=== PATIENT | female | born 1960 | race Caucasian/White ===

== ENCOUNTER 2021-06-15 17:07 | Observation (INO) ==
[2021-06-15] MEDS ORDERED: ACETAMINOPHEN 325 MG TABLET PO ONE ×2 (17:49→23:51)
[2021-06-15] MEDS ORDERED: LACTATED RINGERS 1,000 ML IV ONE (17:49)
--- NOTE | 2021-06-15 17:55 | Emergency Department Note ---
HPI General Chief complaint: Fever Stated complaint: fever Time Seen by Provider: 06/15/21 17:14 Source: patient Mode of arrival: ambulatory Limitations: no limitations History of Present Illness HPI Narrative: Narrative: 61-year-old female presents to the ED for evaluation of fever and concern for worsening infection around her wound VAC site of her left thigh. Sent here by PCP who was seen her earlier today for monitoring and management and noticed she had a fever and was developing some redness and warmth around the site. Patient was discharged from [facility] on June 08, she had a surgical debridement of a skin infection and perhaps abscess it sounds like, she had a wound VAC placed at that time. Patient was seen here in the ED on the and the nin she is already on outpatient antibiotics was on Keflex now on Doxy. She has had her wound VAC changed about once a week she says. For the past 48 hours she says she is started to develop low-grade fever increasing pain and redness around the edges of that left medial thigh wound and wound VAC. Otherwise she has no other acute complaints or other signs or symptoms of other infectious source. No URI symptoms no cardiorespiratory compl aints no abdominal pain no GI symptoms no symptoms. Related Data Home Medications Medication Instructions Recorded Confirmed levothyroxine 75 mcg tablet 75 mcg PO DAILY 02/27/16 06/15/21 lisinopril 20 1 tab PO DAILY 02/27/16 06/15/21 mg-hydrochlorothiazide 12.5 mg tablet Previous Rx's Medication Instructions Recorded oxaprozin 600 mg tablet (Daypro) 600 mg PO 1HRACBID #14 tab 02/27/16 doxycycline hyclate 100 mg capsule 100 mg PO BID #14 cap 06/10/21 Allergies Allergy/AdvReac Type Severity Reaction Status Date / Time No Known Drug Allergies Allergy Verified 06/15/21 17:09 Review of Systems ROS ROS Narrative: Narrative: All systems ED: reviewed and negative except as stated. [facility] Narrative Patient History Narrative: Narrative: Medical/Surgical/Family History All Active Problems (Updated 06/15/21 @ 21:55 by Florencio Conklin MD) Anemia (Acute) Sprain and strain of wrist (Acute) Cellulitis of left ankle (Acute) Left ankle swelling (Acute) Leg wound, left (Acute) Encounter for management of wound VAC (Acute) Wound infection (Acute) Medical History Sprain and strain of wrist Social History Smoking Status: Former smoker Exam Narrative Narrative: Narrative: Constitutional: normally developed, no acute distress . Borderline febrile 37.9 overall nonseptic nontoxic Head: Normocephalic, atraumatic, Eyes: No Icterus, ENT: Moist mucus membranes, Neck: Supple, Cardiac: Normal heart sounds, palpable radial pulses, no peripheral edema Pulmonary: Normal respiratory effort. Breath sounds clear, no wheeze, rhonchi, rales, Gastrointestinal: Abdomen soft, non-distended, non-tender, Musculoskeletal: No gross deformities, well perfused. Patient has a wound VAC to her left medial thigh wound, around the edges it is becoming slightly indurated tender and warm there is some mild erythema starting to develop but no obvious sign of drainable abscess. Skin: warm, dry Neuro: Alert and oriented. General Limitations: no limitations Course Vital Signs Vital signs: Vital Signs Temperature 37.9 C H 06/15/21 17:08 Pulse Rate 90 06/15/21 17:08 Respiratory Rate 18 06/15/21 17:08 Blood Pressure 109/70 06/15/21 17:08 Pulse Oximetry (%) 99 06/15/21 17:08 Temperature 36.4 C 06/16/21 00:00 Pulse Rate 75 06/16/21 00:00 Respiratory Rate 18 06/16/21 00:00 Blood Pressure 124/81 06/16/21 00:00 Pulse Oximetry (%) 95 06/16/21 00:00 [facility] MDM Narrative Medical decision making narrative: Narrative: Patient with a history of soft tissue wound surgically debrided at [place] over a month ago has had wound VAC since then following with PCP. Already on outpatient antibiotics but starting to develop some recurrent signs of infection around that site and low-grade fever her doctor sent her here for evaluation We will obtain labs, patient given IV fluids will change wound VAC. Did examine the wound after wound VAC was removed, does have some mild erythema and induration around the edge, overall the wound is well perfused but the central area does have some slight black granulation versus slight necrotic tissue may require some further debridement. Did consult with Dr. Park who is agreeable to seeing the patient on consult service, request hospitalist admission. CBC no leukocytosis, of note patient is acutely anemic hemoglobin 6.5 no previous labs for comparison, she has no known history of anemia or reports of any recent bleeding no prior transfusions. She denies any abdominal pain GI symptoms melena or blood per rectum. She did provide consent for blood transfusion we will give her 1 unit Lactic acid normal 1.0 electrolytes no significant abnormalities Did speak with the hospitalist who agrees to admit the patient and did also discuss in the setting of this anemia, Dr. Park is agreeable to performing endoscopy if it is determined if she may need that as part of her anemia work- up. Lab Data Result diagrams: 06/15/21 17:50 06/15/21 17:50 Labs: Lab Results 06/15/21 06/15/21 06/15/21 Range/Units 17:50 17:50 17:50 WBC 7.4 (4.5-11.0) K/mcL RBC 2.28 L (3.59-5.38) M/mcL Hgb 6.5 L* (11.2-15.7) g/dL Hct 20.7 L* (34.1-44.9) % MCV 90.8 (80.0-100.0) fL MCH 28.5 (26.0-34.0) pg MCHC 31.4 (31.0-36.0) g/dL RDW 14.7 H (11.5-14.5) % Plt Count 396 (140-440) K/mcL MPV 8.5 (7.4-10.4) fL Neut % (Auto) 0 L (38.0-78.0) % Lymph % (Auto) 0 L (15.5-49.0) % [place] % (Auto) 0 L (1.0-12.0) % Eos % (Auto) 0 (0.0-7.0) % Baso % (Auto) 0 (0.0-2.0) % Lymph # (Auto) 1.33 L (1.50-4.80) K/mcL [place] # (Auto) 1.07 H (0.10-0.90) K/mcL Eos # (Auto) 0.04 (0.00-0.70) K/mcL Baso # (Auto) 0.06 (0.00-0.30) K/mcL Absolute Neutrophils 4.93 (1.80-8.00) K/mcL VBG Lactic Acid 1.0 (0.5-2.0) mmol/L Sodium 135 (133-145) mmol/L Potassium 4.0 (3.3-5.1) mmol/L Chloride 101 (96-108) mmol/L Carbon Dioxide 23 (22-30) mmol/L Anion Gap 11.0 (8.0-16.0) BUN 11 (8-23) mg/dL Creatinine 0.5 L (0.6-1.1) mg/dL GFR Calculation 103 Glucose 94 (70-105) mg/dL Calcium 7.9 L (8.6-10.4) mg/dL ED POC Tests ED POC Tests: MANUELA - SARS Antigen Negative Discharge Plan Patient/Caregiver Discharge Instructions Pt seen by [facility] HELPER/PA only: No Clinical Impression: Wound infection Patient Disposition: Xfer As Inpt ([facility]) Condition: Fair Discharge Date/Time: 06/15/21 22:24 Discharge Comment: Taken via stretcher to [facility]
[2021-06-15] MEDS ORDERED: diphenhydrAMINE 50 MG/ML VIAL IV ONE (18:29)
[2021-06-15 18:55] LABS: Eosinophils # (Auto) 0.04 K/mcL (0.00-0.70); Hematocrit 20.7 % (34.1-44.9); Hemoglobin 6.5 g/dL (11.2-15.7); Lymphocytes # (Auto) 1.33 K/mcL (1.50-4.80); Mean Cell Volume 90.8 fL (80.0-100.0); Mean Corpuscular HGB Conc 31.4 g/dL (31.0-36.0); Mean Platelet Volume 8.5 fL (7.4-10.4); Monocytes # (Auto) 1.07 K/mcL (0.10-0.90); Platelet Count 396 K/mcL (140-440); RBC 2.28 M/mcL (3.59-5.38); Red Cell Distribution Width 14.7 % (11.5-14.5); WBC 7.4 K/mcL (4.5-11.0)
[2021-06-15] MEDS ORDERED: VANCOMYCIN 1,000 MG in 0.9 % SODIUM CHLORIDE 250 ML IV ONE (19:10)
[2021-06-15 19:13] LABS: Blood Urea Nitrogen 11 mg/dL (8-23); Calcium 7.9 mg/dL (8.6-10.4); Carbon Dioxide 23 mmol/L (22-30); Chloride 101 mmol/L (96-108); Glomerular Filtration Rate 103; Glucose 94 mg/dL (70-105)
[2021-06-15] MEDS ORDERED: 0.9 % SODIUM CHLORIDE 250 ML IV SCH (19:15)
[2021-06-15] MEDS ORDERED: morphine 4 MG/ML VIAL IV ONE (20:20)
[2021-06-15] MEDS ORDERED: LORazepam 2 MG/ML VIAL IV ONE (21:31)
[2021-06-15 21:55] LABS: Basophils # (Auto) 0.06 K/mcL (0.00-0.30); Basophils % (Auto) 0 % (0.0-2.0); Eosinophils % (Auto) 0 % (0.0-7.0); Lymphocytes % (Auto) 0 % (15.5-49.0); Monocytes % (Auto) 0 % (1.0-12.0); Neutrophils % (Auto) 0 % (38.0-78.0)
--- NOTE | 2021-06-15 21:57 | Internal Med History&Physical ---
HPI History of Present Illness Patient information: Note initiated : 06/15/21 at 9:49 pm Service Date, if different from initiated Date: [as above] Patient: Sumaya Espinoza a 61 y/o F admitted on for fever. Chief Complaint: [Non-healing wound] Chief complaint: Left inner thigh non-healing wound History of present illness: Ms. Espinoza is a 61 year old F with a past medical history significant for left inner thigh necrotizing fasciitis requiring surgical debridement and wound VAC placement. The patient was hospitalized at [facility] for nearly 1 month starting May 16 and discharged on June 08. She went home with home health services however had trouble managing her wound VAC changes. I do not have her outside hospital records and it is unclear what the plan of care was including possible follow-up with infectious disease, and or plastic surgery. She finally followed up with her primary care physician on June 15 who believes that the wound appeared to be worsening despite being on doxycycline. She was instructed to come to the ER for further management and evaluation. Incidentally, the patient was also found to have hemoglobin and hematocrit of 6.5/20.9. She denies any episodes of hematochezia or melena. She is being transfused 1 unit of packed red blood cells. Review of Systems All systems: reviewed and no additional remarkable complaints except as stated Constitutional Constitutional: Present as per HPI EENT Eyes: Present as per HPI; Absent blurry vision Cardiovascular Cardiovascular: Present as per HPI; Absent chest pain, dyspnea, dyspnea on exertion, leg edema or palpatations Respiratory Respiratory: Present as per HPI; Absent cough, dyspnea, dyspnea on exertion, wheezing or stridor Gastrointestinal Gastrointestinal: Present as per HPI; Absent abdominal pain, diarrhea, dysphagia, hematemesis, melena, nausea or vomiting Musculoskeletal Musculoskeletal: Present as per HPI; Absent joint swelling, limited range of motion, muscle cramps, muscle weakness or myalgias Integumentary Integumentary: Present as per HPI; Absent erythema, new lesions, rash or wounds Neurological Neurological: Present as per HPI; Absent abnormal gait, behavioral changes, focal weakness, headache(s), loss of vision, numbness, sensory deficit or syncope Endocrine Endocrine: Absent change in body appearance, fatigue or heat intolerance Hematologic/Lymphatic Hematologic/Lymphatic: Present as per HPI PFSH PFSH All Active Problems (Updated 06/15/21 @ 21:55 by Florencio Conklin MD) Anemia (Acute) Sprain and strain of wrist (Acute) Cellulitis of left ankle (Acute) Left ankle swelling (Acute) Leg wound, left (Acute) Encounter for management of wound VAC (Acute) Wound infection (Acute) Medical History Sprain and strain of wrist MEDS/ALLERGIES Home Medications and Allergies Home Medications Medication Instructions Recorded Confirmed Type levothyroxine 75 mcg tablet 75 mcg PO DAILY 02/27/16 02/27/16 History lisinopril 20 1 tab PO DAILY 02/27/16 02/27/16 History mg-hydrochlorothiazide 12.5 mg tablet oxaprozin 600 mg tablet (Daypro) 600 mg PO 1HRACBID #14 tab 02/27/16 Rx doxycycline hyclate 100 mg capsule 100 mg PO BID #14 cap 06/10/21 Rx Allergies Allergy/AdvReac Type Severity Reaction Status Date / Time No Known Drug Allergies Allergy Verified 06/15/21 17:09 EXAM Constitutional Vitals: Temp Pulse Resp BP Pulse Ox 100 F H 88 18 110/59 97 06/15/21 18:03 06/15/21 20:50 06/15/21 17:08 06/15/21 20:46 06/15/21 20:50 General appearance: average body habitus Head Head exam: Present atraumatic, normal inspection and normocephalic Eye Eye exam: Present EOMI, normal appearance and PERRL; Absent conjunctival injection ENT ENT exam: Present normal exam; Absent mucous membranes dry Neck Neck exam: Present full ROM; Absent lymphadenopathy Respiratory Respiratory exam: Present normal respiratory exam and CTAB; Absent decreased breath sounds, respiratory distress or wheezes Cardiovascular Cardiovascular exam: Present normal rate and rhythm and RRR; Absent JVD GI/Abdominal GI/Abdominal exam: Present normal bowel sounds and soft; Absent diminished bowel sounds, distended, guarding, mass, rebound or tenderness Neurological Exam Neurological exam: Present alert, CN II-XII intact and oriented X3 Psychiatric Psychiatric exam: Present normal affect and normal mood Skin Skin exam: Present intact and warm; Absent erythema, pallor, petechiae or rash DATA Data Completed and Pending Labs: Labs from last 24 hours 06/15/21 06/15/21 06/15/21 17:50 17:50 17:50 WBC 7.4 RBC 2.28 L Hgb 6.5 L* Hct 20.7 L* MCV 90.8 MCH 28.5 MCHC 31.4 RDW 14.7 H Plt Count 396 MPV 8.5 Neut % (Auto) 66.4 Lymph % (Auto) 17.9 [place] % (Auto) 14.4 H Eos % (Auto) 0.5 Baso % (Auto) 0.8 Lymph # (Auto) 1.33 L [place] # (Auto) 1.07 H Eos # (Auto) 0.04 Baso # (Auto) 0.06 Absolute Neutrophils 4.93 VBG Lactic Acid 1.0 Sodium 135 Potassium 4.0 Chloride 101 Carbon Dioxide 23 Anion Gap 11.0 BUN 11 Creatinine 0.5 L GFR Calculation 103 Glucose 94 Calcium 7.9 L A/P Assessment and plan (1) Leg wound, left: Status: Acute (2) Encounter for management of wound VAC: Status: Acute (3) Anemia: Status: Acute Narrative A/P Narrative: The patient will be seen by general surgery for further debridement. She was placed on broad-spectrum antibiotic coverage with Zosyn. It would be beneficial to have her be seen by plastic surgery and infectious disease. It would have been beneficial to have her transferred to higher level care. General surgery has been consulted and will see if she requires further debridement of the wound. The wound is quite deep and sizable. She will likely need patrick nstructive surgery in the future. Time Spent With Patient Time: Total time spent is greater than 50% in coordination of care (as documented) at patient's floor/unit and/or counseling patient: Total time spent with greater than 50% in coordination of care (as documented) at patient's floor/unit and/or counseling patient:: 50 - 70 minutes
[2021-06-15] MEDS ORDERED: ONDANSETRON 4 MG/2 ML VIAL IV PRN (23:11)
[2021-06-15] MEDS: 0.9 % SODIUM CHLORIDE 10 ML SYRINGE IV SCH (23:39)
[2021-06-15] MEDS: ACETAMINOPHEN 325 MG TABLET PO PRN (23:45)
[2021-06-16] MEDS: PIPERACILLIN SODIUM/TAZOBACTAM 3.375 GM in DEXTROSE 5% IN WATER 50 ML IV SCH ×4 (00:32→17:12)
[2021-06-16] MEDS ORDERED: ACETAMINOPHEN 325 MG TABLET PO ONE (05:53)
[2021-06-16] MEDS: ACETAMINOPHEN 325 MG TABLET PO PRN (05:54)
[2021-06-16] MEDS: 0.9 % SODIUM CHLORIDE 10 ML SYRINGE IV SCH ×2 (06:01→12:44)
[2021-06-16 06:49] LABS: Blood Urea Nitrogen 9 mg/dL (8-23); Calcium 7.8 mg/dL (8.6-10.4); Carbon Dioxide 22 mmol/L (22-30); Chloride 105 mmol/L (96-108); Glomerular Filtration Rate 103; Glucose 79 mg/dL (70-105)
[2021-06-16 08:49] LABS: Basophils # (Auto) 0.07 K/mcL (0.00-0.30); Basophils % (Auto) 1.3 % (0.0-2.0); Eosinophils # (Auto) 0.06 K/mcL (0.00-0.70); Eosinophils % (Auto) 1.1 % (0.0-7.0); Hematocrit 24.2 % (34.1-44.9); Hemoglobin 7.6 g/dL (11.2-15.7); Lymphocytes # (Auto) 0.93 K/mcL (1.50-4.80); Lymphocytes % (Auto) 17.4 % (15.5-49.0); Mean Cell Volume 91.7 fL (80.0-100.0); Mean Corpuscular HGB Conc 31.4 g/dL (31.0-36.0); Mean Platelet Volume 8.2 fL (7.4-10.4); Monocytes # (Auto) 0.99 K/mcL (0.10-0.90); Monocytes % (Auto) 18.5 % (1.0-12.0); Neutrophils % (Auto) 61.7 % (38.0-78.0); Platelet Count 334 K/mcL (140-440); RBC 2.64 M/mcL (3.59-5.38)
[2021-06-16] MEDS ORDERED: ENOXAPARIN 40 MG/0.4 ML SYRINGE SQ SCH (09:00)
[2021-06-16] MEDS ORDERED: DOCUSATE SODIUM 100 MG CAPSULE PO SCH (09:00)
[2021-06-16 09:09] LABS: WBC 5.4 K/mcL (4.5-11.0)
[2021-06-16] MEDS ORDERED: morphine 4 MG/ML VIAL IV PRN (11:02)
[2021-06-16] MEDS: traMADol 50 MG TABLET PO PRN ×2 (11:14→16:59)
[2021-06-16] MEDS ORDERED: VANCOMYCIN PER PHARMACY IV SCH (15:45)
[2021-06-16] MEDS ORDERED: VANCOMYCIN 1,500 MG in 0.9 % SODIUM CHLORIDE 500 ML IV SCH (15:45)
[2021-06-16] MEDS ORDERED: VANCOMYCIN 750 MG in 0.9 % SODIUM CHLORIDE 250 ML IV SCH (16:00)
[2021-06-16] MEDS ORDERED: MEROPENEM 0.5 GM in 0.9 % SODIUM CHLORIDE 50 ML IV SCH (16:15)
[2021-06-16] MEDS ORDERED: MEROPENEM 1 GM in 0.9 % SODIUM CHLORIDE 50 ML IV SCH (17:00)
[2021-06-16] MEDS ORDERED: MEROPENEM 1 GM in 0.9 % SODIUM CHLORIDE 100 ML IV SCH (17:00)
--- NOTE | 2021-06-16 17:50 | Discharge Summary ---
Discharge Provider Provider Patient information: Note initiated : 06/16/21 at 5:50 pm Service Date, if different from initiated Date: [as above] Patient: Sumaya Espinoza 61 y/o F admitted on 06/15/21 for fever. Chief Complaint: [worsening of the LLE wound] Date of admission: 06/15/21 22:24 Discharge date: 06/16/21 Primary care physician: Other Provider Admitting clinician: Florencio Conklin Consults: 06/15/21 Consult to Physician [CONS] Stat Comment: Consulting Provider: Florencio Conklin Reason For Exam: Physician to Consult 06/16/21 11:03 Consult to Physician [CONS] Routine Comment: wound to left thigh Consulting Provider: Raul Park Reason For Exam: Physician to Consult Attending physician on discharge: Florencio Conklin Discharge Meds Discharge Medications Home Medications levothyroxine 75 mcg tablet 75 mcg PO DAILY 02/27/16 [History Confirmed 06/15/21 Last Taken Unknown] lisinopril 20 mg-hydrochlorothiazide 12.5 mg tablet 1 tab PO DAILY 02/27/16 [ History Confirmed 06/15/21 Last Taken Unknown] doxycycline hyclate 100 mg capsule 100 mg PO BID #14 cap 06/10/21 [Rx Confirmed 06/15/21 Last Taken Unknown] COURSE Hospital Course Hospital course: The patient had a recent protracted and complex hospitalization from 05/16 to 06/08 after developing nec fasc of the LLE requiring multiple debridements with subsequent wound VAC placement. Post-discharge she was unable to be seen by HH in a timely manner for VAC change. She followed up with her PCP on 06/15 who eval uated the wound and believed she needed to go to the ER immediately. The patient is an overall poor historian and denied any prodromal symptoms. On admission, she was HD stable and afebrile but incidently was found to have Hb of 6.5. She was transfused 1u of pRBC. The patient was started on empiric Zosyn and wound team/genSx were consulted. This morning, her blood cx came back positive for gram + cocci and her wound cx revealed VRE. She was given 1 time dose of meropenem. I discussed the case with the hospitalist and surgeon at [facility] who kindly accepted to take the patient for higher level of care. Discharge diagnosis: Necrotic wound, bacteremia Time Spent with Patient Time attestation: Total time spent providing and/or coordinating discharge services: Time spent: Greater than 30 minutes EXAM Constitutional Vitals: Temp Pulse Resp BP Pulse Ox 98.5 F 68 20 104/67 95 06/16/21 16:00 06/16/21 16:00 06/16/21 16:00 06/16/21 16:00 06/16/21 16:00 General appearance: average body habitus Head Head exam: Present atraumatic, normal inspection and normocephalic Eye Eye exam: Present EOMI, normal appearance and PERRL; Absent conjunctival injection ENT ENT exam: Present normal exam; Absent mucous membranes dry Neck Neck exam: Present full ROM; Absent lymphadenopathy Respiratory Respiratory exam: Present normal respiratory exam and CTAB; Absent decreased breath sounds, respiratory distress or wheezes Cardiovascular Cardiovascular exam: Present normal rate and rhythm and RRR; Absent JVD GI/Abdominal GI/Abdominal exam: Present normal bowel sounds and soft; Absent diminished bowel sounds, distended, guarding, mass, rebound or tenderness Neurological Exam Neurological exam: Present alert, CN II-XII intact and oriented X3 Psychiatric Psychiatric exam: Present normal affect and normal mood Skin Skin exam: Present intact and warm; Absent erythema, pallor, petechiae or rash Discharge Data Data Completed and Pending Labs on day of discharge: Labs from last 24 hours 06/16/21 06/16/21 06/15/21 05:15 05:15 17:50 WBC 5.4 RBC 2.64 L Hgb 7.6 L Hct 24.2 L MCV 91.7 MCH 28.8 MCHC 31.4 RDW 15.0 H Plt Count 334 MPV 8.2 Neut % (Auto) 61.7 Lymph % (Auto) 17.4 [place] % (Auto) 18.5 H Eos % (Auto) 1.1 Baso % (Auto) 1.3 Lymph # (Auto) 0.93 L [place] # (Auto) 0.99 H Eos # (Auto) 0.06 Baso # (Auto) 0.07 Absolute Neutrophils 3.30 VBG Lactic Acid 1.0 Sodium 136 Potassium 4.4 Chloride 105 Carbon Dioxide 22 Anion Gap 9.0 BUN 9 Creatinine 0.5 L GFR Calculation 103 Glucose 79 Calcium 7.8 L 05/11/22 05/11/22 17:50 17:50 WBC 7.4 RBC 2.28 L Hgb 6.5 L* Hct 20.7 L* MCV 90.8 MCH 28.5 MCHC 31.4 RDW 14.7 H Plt Count 396 MPV 8.5 Neut % (Auto) 0 L Lymph % (Auto) 0 L [place] % (Auto) 0 L Eos % (Auto) 0 Baso % (Auto) 0 Lymph # (Auto) 1.33 L [place] # (Auto) 1.07 H Eos # (Auto) 0.04 Baso # (Auto) 0.06 Absolute Neutrophils 4.93 VBG Lactic Acid Sodium 135 Potassium 4.0 Chloride 101 Carbon Dioxide 23 Anion Gap 11.0 BUN 11 Creatinine 0.5 L GFR Calculation 103 Glucose 94 Calcium 7.9 L Preliminary micro results at discharge 06/15/21 17:50 Blood Culture - Preliminary Blood Gram positive cocci Discharge Plan Patient/Caregiver Discharge Instructions Activity: increase activity as tolerated Prescriptions: Continued lisinopril-hydrochlorothiazide 1 TAB tablet 1 tab PO DAILY 0RF levothyroxine 75 MCG tablet 75 mcg PO DAILY 0RF doxycycline hyclate 100 mg capsule 100 mg PO BID Qty: 14 0RF Follow Up Plan Follow up with: Provider,Other [Primary Care Provider] - Patient Disposition: Xfer Acute [facility] Prognosis: Fair Rehab Potential: Good I certify that the patient requires SNF services: No Overall status at discharge: patient is not back to baseline Discharge Orders: Discharge Order (Routine); Ordered 06/16/21 Ordered By: Florencio Conklin
[2021-06-16] MEDS ORDERED: SENNOSIDES 1 TABLET PO SCH (21:00)
== END 2021-06-16 19:45 | disposition short-term general hospital (02) ==
LOC: ED 17:07 → INTOOBSV 22:24 → MEDSUR 22:24
PROVIDERS: ADMIT Student in an Organized Health Care Education/Training Program; ATTEND Student in an Organized Health Care Education/Training Program